=== PATIENT | female | born 1945 | race African-American/Black ===

== ENCOUNTER 2023-09-12 16:21 | Emergency (ER) | payer MEDICARE ==
[~2023-09-12] VITALS: Ht 165.1 cm; Wt 60.0 kg
[2023-09-12 16:39] VITALS: BP 120/58; PULSE 77; RESP 18; TEMP 98.5; O2SAT 97
[2023-09-12] MEDS ORDERED: HYDR-4233 TP (17:25)
== END 2023-09-12 17:47 | disposition home or self-care (01) ==
LOC: ER 16:21
DX: L30.9 Dermatitis, unspecified (principal)
CPT/HCPCS: 99282